=== PATIENT | male | born 1950 ===

== ENCOUNTER → 2017-10-27 | Outpatient (CLI) | payer OTHER | LOC: PLD 09:47 → LAB SHORT 09:47 | DX: D48.5 Neoplasm of uncertain behavior of skin (principal) | CPT/HCPCS: 88305 ==

== ENCOUNTER 2020-05-23 05:56 | Day surgery (SDC) | payer OTHER ==
[~2020-05-23] VITALS: Ht 182.9 cm; Wt 77.5 kg
[~2020-05-23 05:56] MED LIST: CENTRUM SILVER1 EAC2 PO; FLUT.05NI; MELA3 PO; MIRALAX17 GM PO; TRAM50 PO; TURKEY TAIL MUSHROOM PO; TURMERIC PO; TYLENOL 650MG PO; VITAMIN B125000 MC1 PO; VITAMIN D310 MC4 PO; Xeloda150 MG PO; [UNRECOGNIZED DRUG - OTHER] PO
[2020-05-23] MEDS ORDERED: Anucort-Hc25 MG PR (06:24)
--- NOTE | 2020-05-23 06:36 | NUR ---
History, Chart, Medications and Allergies reviewed before start of procedure. Lungs clear T/O to Auscultation. Patient confirms NPO status and agrees with scheduled surgery. Pre-Op teaching done. Pt verbalizes understanding. Patient reports completing Chlorhexadine shower X2 prior to admission to hospital.
--- NOTE | 2020-05-23 08:14 | NUR ---
05/23/20 0814 Nallely Golden ALL COUNTS CORRECT
--- NOTE | 2020-05-23 09:36 | NUR ---
Patient up to Ambulate independently. Gait steady. History, Chart, Medications and Allergies reviewed before start of procedure. Lungs clear T/O to Auscultation. Discharged via wheelchair to private car for ride home.
== END 2020-05-23 22:38 | disposition home or self-care (01) ==
LOC: ORSCMMR 05:56 → ORD 07:30 → ORSCMMR 22:38
PROVIDERS: Surgery
PROC: B5131ZA Fluoroscopy of Right Jugular Veins using Low Osmolar Contrast, Guidance (ICD-10-PCS; principal; 2020-05-23 07:30)
PROC: 05HM33Z Insertion of Infusion Device into Right Internal Jugular Vein, Percutaneous Approach (ICD-10-PCS; principal; 2020-05-23 07:30)
DX: C20 Malignant neoplasm of rectum (principal); Z79.899 Other long term (current) drug therapy
CPT/HCPCS: 77001; A9270-GY; C1788; J0690; J1100; J1642; J2405; J2704; J3010; J7120

== ENCOUNTER → 2021-04-17 | Outpatient (CLI) | payer OTHER ==
[~2021-04-17] MED LIST changes: +Anucort-Hc25 MG PR
== END | disposition home or self-care (01) ==
LOC: LAB 16:24 → LAB SHORT 16:24 → LAB FUT 10-23 12:30
DX: C20 Malignant neoplasm of rectum (principal); R19.7 Diarrhea, unspecified
CPT/HCPCS: 36415; 82378